=== PATIENT | male | born 1985 | race Caucasian/White ===

== ENCOUNTER 2021-05-05 01:11 | Emergency (ER) | payer OTHER ==
[~2021-05-05] VITALS: Ht 175.3 cm; Wt 74.8 kg
--- NOTE | 2021-05-05 01:26 | NUR ---
pt ambulated to room 5 c/o laceration to finger.
[2021-05-05] MEDS ORDERED: CEPH500T PO (01:37)
[2021-05-05] MEDS ORDERED: TDAP DIPH,PERTUSS,TET VAC/PF 0.5 ML DISP.SYRIN IM ONE ×2 (01:45→02:29)
[2021-05-05] MEDS ORDERED: CEFTRIAXONE 1 G VIAL IM ONE (01:45)
--- NOTE | 2021-05-05 02:15 | NUR ---
Dr. Iraheta at bedside for suture.
[2021-05-05] MEDS ORDERED: LIDOCAINE HCL 1% 20 ML VIAL ONE (02:28)
[2021-05-05] MEDS ORDERED: CEFTRIAXONE 1 G VIAL ONE (02:29)
--- NOTE | 2021-05-05 03:05 | NUR ---
Patient discharged to home in stable condition. Written and verbal after care instructions given. Patient verbalizes understanding of instructions. Stressed follow up or return to ER for worsening s/s. pt ambulated with steady gait, denies pain.
[2021-05-05 03:08] VITALS: BP 130/80
[2021-05-05] MEDS ORDERED: LIDOCAINE HCL 2% 20 ML VIAL TP ONE (03:15)
[2021-05-05] MEDS ORDERED: SODIUM BICARBONATE 4.2 % (NEUT) 5 ML VIAL TP ONE (03:15)
== END 2021-05-05 03:09 | disposition home or self-care (01) ==
LOC: ER 01:20
DX: S61.210A Laceration without foreign body of right index finger without damage to nail, initial encounter (principal); W45.8XXA Other foreign body or object entering through skin, initial encounter; Y92.89 Other specified places as the place of occurrence of the external cause
CPT/HCPCS: 12002; 90471; 90715; 96372; 99284; J0696; J3490 ×2; A4217; A4663